=== PATIENT | female | born 1960 | race Caucasian/White ===

== ENCOUNTER 2016-10-10 17:18 | Emergency (ER) ==
[2016-10-10 17:28] VITALS: BP 149/89
[2016-10-10] MEDS ORDERED: ZOFRAN ODT PO ONE (18:27)
[2016-10-10] MEDS ORDERED: NORCO-5 PO ONE (18:27)
[2016-10-10] MEDS ORDERED: FLEXERIL PO ONE (18:27)
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
--- NOTE | 2016-10-11 08:12 | Diag Imaging Result Document ---
PROCEDURE NAME: CHEST-2 VIEWS - 10/10/2016 CHEST X-RAY, 2 VIEWS: COMPARISON: None. FINDINGS: There is significant right hemidiaphragm elevation. The lungs are clear of infiltrate. Heart size and pulmonary vascularity is normal. No pneumothorax or pleural effusion. IMPRESSION: Right hemidiaphragm elevation. No acute disease.
== END 2016-10-10 19:03 | disposition home or self-care (01) ==
LOC: EDBD → ED 17:18
DX: S20.219A Contusion of unspecified front wall of thorax, initial encounter (principal); R07.89 Other chest pain; M54.2 Cervicalgia; E78.5 Hyperlipidemia, unspecified; Z79.899 Other long term (current) drug therapy; V89.2XXA Person injured in unspecified motor-vehicle accident, traffic, initial encounter
CPT/HCPCS: 71020; 93005; 99283; S0181